=== PATIENT | male | born 1970 | race African-American/Black ===

== ENCOUNTER 2021-11-21 09:45 | Emergency (ER) | payer MEDICAID ==
[~2021-11-21] VITALS: Ht 175.3 cm; Wt 90.0 kg
[2021-11-21] MEDS ORDERED: NEOMYCIN-POLYMYXIN-HYDROCORTISONE 1% OTIC SUSP 10ML LEFT EAR ONE (10:00)
[2021-11-21] MEDS ORDERED: IBUPROFEN 600MG TABLET PO ONE (10:00)
[2021-11-21] MEDS ORDERED: IBUP-2029 MT (10:17)
[2021-11-21] MEDS ORDERED: AMOX-494 MT (10:17)
[2021-11-21 10:37] VITALS: BP 146/81
== END 2021-11-21 10:48 | disposition home or self-care (01) ==
LOC: ER 09:45
DX: H66.92 Otitis media, unspecified, left ear (principal)
CPT/HCPCS: 99283

== ENCOUNTER 2021-11-23 10:53 | Emergency (ER) | payer MEDICAID ==
[~2021-11-23] VITALS: Ht 165.1 cm; Wt 80.0 kg
[~2021-11-23 10:53] MED LIST: AMOX-494 MT; IBUP-2029 MT
[2021-11-23] MEDS ORDERED: KETOROLAC 60MG/2ML VIAL IM ONE (11:15)
[2021-11-23] MEDS ORDERED: IBUPROFEN 600MG TABLET PO ONE (12:30)
[2021-11-23 13:13] VITALS: BP 137/64
[2021-11-23] MEDS ORDERED: OFLO5DRO4 LEFT EAR (13:14)
== END 2021-11-23 13:33 | disposition home or self-care (01) ==
LOC: ER 11:56
DX: H60.92 Unspecified otitis externa, left ear (principal)
CPT/HCPCS: 99283